=== PATIENT | male | born 1995 | race Caucasian/White ===

== ENCOUNTER 2017-12-22 19:03 | Emergency (ER) | payer OTHER, MEDICAID ==
[~2017-12-22] VITALS: Ht 160 cm; Wt 74.8 kg
[2017-12-22 19:11] VITALS: BP 128/71
[2017-12-22 20:16] VITALS: BP 125/69
== END 2017-12-22 20:16 | disposition home or self-care (01) ==
LOC: MED 19:03
DX: Z76.0 Encounter for issue of repeat prescription (principal)
CPT/HCPCS: 99283

== ENCOUNTER 2018-09-12 20:47 | Emergency (ER) | payer OTHER, MEDICAID ==
[~2018-09-12] VITALS: Ht 165.1 cm; Wt 68.0 kg
[2018-09-12 20:55] VITALS: BP 144/95
--- NOTE | 2018-09-12 20:55 | NUR ---
PT AMBULATED TO BED 9
--- NOTE | 2018-09-12 20:59 | NUR ---
CAREGIVER STATES, "PT MAY HAVE GOTTEN SICK FROM ROOMMATE BECAUSE EVERYONE AT THE FACILITY IS GETTING SICK"
--- NOTE | 2018-09-12 20:59 | NUR ---
23 Y/O M PT BROUGHT IN BY BILLING ASSOCIATE C/O OF COLD SYMPTOMS AND CONGESTION X2 DAYS. PT C/O PAIN LEVEL 8/10 UPON INHALATION. RESPIRATIONS ARE EVEN AND UNLABORED. BREATH SOUNDS ARE CLEAR BILATERAL. NO FEVER NOTED. MEDHX: INTELLECTUAL DISABILITY. SAFETY MEASURES IN PLACE. wAITING FOR MD TO REEVALUATE. EMD MADE AWARE OF PT STATUS.
--- NOTE | 2018-09-12 21:10 | NUR ---
Dennis narayanan in [facility] - 09/12/18 at 2114 by FRANDY PT BEING EVALUATED MY
--- NOTE | 2018-09-12 21:10 | NUR ---
MD EVALUATING PT
--- NOTE | 2018-09-12 21:18 | NUR ---
Patient discharged with v/s stable. Written and verbal after care instructions given and explained to parent/guardian. Parent/Guardian verbalized understanding of instructions. Ambulatory with steady gait. All questions addressed prior to discharge. ID band removed. Parent/Guardian advised to follow up with PMD. Rx of AUGMENTIN AND FLONASE given. Parent/Guardian educated on indication of medication including possible reaction and side effects. Opportunity to ask questions provided and answered.
[2018-09-12 21:19] VITALS: BP 144/95
== END 2018-09-12 21:19 | disposition home or self-care (01) ==
LOC: MED 20:47
DX: H66.91 Otitis media, unspecified, right ear (principal); R09.81 Nasal congestion
CPT/HCPCS: 99283

== ENCOUNTER 2018-10-21 20:42 | Emergency (ER) | payer OTHER, MEDICAID ==
[~2018-10-21] VITALS: Ht 167.6 cm; Wt 86.2 kg
[2018-10-21 20:55] VITALS: BP 136/90
--- NOTE | 2018-10-21 20:58 | NUR ---
TO LOBBY A/W BED, AMBULATORY
--- NOTE | 2018-10-22 01:30 | NUR ---
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 HERE FOR EMERGENCY MED REFILL. PSYCHIATRIST OUT OF TOWN. LAST DOSES TAKEN AT BEDTIME ON 10/20/18. CURRICULUM COORDINATOR STATES PT IS NOT SHOWING SIGNS OF BEAHVIORAL CHANGE. PT NEEDS REFILLS FOR: -- CLONAZEPAM 0.5 BID -- TRAZADONE 50 MG AT BEDTIME -- OLANZAPINE 20 MG AT BEDTIME -- PT AWAKE, ALERT, CALM, COOPERATIVE. -- SKIN PINK, WARM, DRY. BREATHING EVEN, UNLABORED.
--- NOTE | 2018-10-22 02:44 | NUR ---
DR. NAAVS EVALUATING AT BEDSIDE.
[2018-10-22 03:43] VITALS: BP 125/76
--- NOTE | 2018-10-22 03:43 | NUR ---
Patient discharged with v/s stable. Written and verbal after care instructions given and explained. Patient alert, oriented and verbalized understanding of instructions. Ambulatory with steady gait. All questions addressed prior to discharge. ID band removed. Patient advised to follow up with PMD. Rx of Clonazepam, Olanzapine, and Trazadone given. Patient educated on indication of medication including possible reaction and side effects. Opportunity to ask questions provided and answered.
== END 2018-10-22 03:43 | disposition home or self-care (01) ==
LOC: MED 20:42
DX: F99 Mental disorder, not otherwise specified (principal); F17.200 Nicotine dependence, unspecified, uncomplicated; Z76.0 Encounter for issue of repeat prescription
CPT/HCPCS: 99283

== ENCOUNTER 2019-06-17 15:46 | Emergency (ER) | payer OTHER, MEDICAID ==
[~2019-06-17] VITALS: Ht 167.6 cm; Wt 93.0 kg
[2019-06-17 15:54] VITALS: BP 159/100
[2019-06-17 16:35] VITALS: BP 123/78
== END 2019-06-17 17:07 | disposition home or self-care (01) ==
LOC: MED 15:46
DX: Z00.00 Encounter for general adult medical examination without abnormal findings (principal)
CPT/HCPCS: 99281

== ENCOUNTER 2020-06-08 15:48 | Emergency (ER) | payer OTHER, MEDICAID ==
[~2020-06-08] VITALS: Ht 165.1 cm; Wt 94.3 kg
[2020-06-08 15:58] VITALS: BP 128/74
[2020-06-08 16:18] VITALS: BP 128/74
== END 2020-06-08 16:18 | disposition home or self-care (01) ==
LOC: MED 15:48
DX: F78 Other intellectual disabilities (principal); F80.9 Developmental disorder of speech and language, unspecified
CPT/HCPCS: 99281

== ENCOUNTER 2021-02-05 18:27 | Emergency (ER) | payer OTHER, MEDICAID ==
[~2021-02-05] VITALS: Ht 177.8 cm; Wt 91.2 kg
[2021-02-05 18:50] VITALS: BP 152/97
--- NOTE | 2021-02-05 22:11 | NUR ---
PT MOVED TO CHAIR C
[2021-02-05] MEDS ORDERED: LIDOCAINE/EPI 1% 1:100000 20 ML VIAL INJ ONE ×2 (22:25)
[2021-02-05 23:09] VITALS: BP 152/97
--- NOTE | 2021-02-05 23:09 | NUR ---
Patient discharged with v/s stable. Written and verbal after care instructions given and explained. Patient verbalized understanding.ARMBAND REMOVED. Ambulatory with steady gait. All questions addressed prior to discharge. Advised to follow up with PMD.
--- NOTE | 2021-02-05 23:25 | NUR ---
The patient's care was reviewed and supervised by Galilea Donis RN.
== END 2021-02-05 23:09 | disposition home or self-care (01) ==
LOC: MED 18:27
DX: S01.91XA Laceration without foreign body of unspecified part of head, initial encounter (principal); W06.XXXA Fall from bed, initial encounter; Y93.89 Activity, other specified; Y92.89 Other specified places as the place of occurrence of the external cause; Y99.8 Other external cause status
CPT/HCPCS: 12001; 90471; 90715; 99283; J2001

== ENCOUNTER 2021-02-18 17:50 | Emergency (ER) | payer OTHER, MEDICAID ==
[~2021-02-18] VITALS: Ht 165.1 cm; Wt 93.4 kg
[2021-02-18 18:16] VITALS: BP 144/102
--- NOTE | 2021-02-18 18:31 | NUR ---
PT RETURNED TO LOBBY WITH CAREGIVER
[2021-02-18 20:09] VITALS: BP 122/89
--- NOTE | 2021-02-18 20:10 | NUR ---
Patient discharged with v/s stable. Written and verbal after care instructions given and explained. Patient verbalized understanding. Ambulatory with steady gait. All questions addressed prior to discharge. Advised to follow up with PMD.
== END 2021-02-18 20:07 | disposition home or self-care (01) ==
LOC: MED 17:50
DX: S01.01XD Laceration without foreign body of scalp, subsequent encounter (principal); Z48.00 Encounter for change or removal of nonsurgical wound dressing; X58.XXXD Exposure to other specified factors, subsequent encounter
CPT/HCPCS: 99281